=== PATIENT | male | born 1975 | race Caucasian/White ===

== ENCOUNTER 2016-05-25 02:54 | Emergency (ER) | payer MEDICARE, MEDICAID ==
[~2016-05-25] VITALS: Ht 182.9 cm; Wt 113.4 kg
[~2016-05-25 02:54] MED LIST: ACDPT PO; ACLI400A IH; ADV1DS IH; ADVAIR IH; ALBU2.5V4 NEB; ALBU8.5H2 IH; ALBU8.5H2 INH; AMLO10TA82 PO; ASP81CT PO; AZIT-21 PO; BUDE10.2 INH; BUDE1AMP IH; BUDE6HFA INH; CEFD300C PO; CEFD300C3 PO; CETI10TA17 PO; CITA20TA4 PO; CITA20TA7 PO; CLIN-81 PO; DIPH25TA82 PO; EPIN0.1D10 INJ; EPIN0.3P3 IM; FLUT1DIS26 INH; GUAI-366 PO; GUAI600T43 PO; GUAN1TAB21 PO; HYDR-1231 PO; HYDR-2858 PO; IBUP-30 PO; IBUP200C11 PO; IPRA3AMP11 INH; LEVO500T80 PO; LEVO750T39 PO; LISI-552 PO; LISI1TAB PO; LISI1TAB8 PO; LORA1TAB PO; LVT.025T PO; METO50TA2 PO; MIDAZOLAM 5 MG/5 ML (VERSED) VIAL INJ ONE; MIRT15TA6 PO; MNTL10T PO; OXYM15SP42 NS; PRD10T PO; PRD20T PO; PRED10TA PO; PROLASTIN-C IV; ROCURONIUM 50 MG/5 ML (ZEMURON) VIAL IV ONE; ROSU20TA14 PO; ROSU5TAB PO; RT-ALBUINH IH; SUCCINYLCHOLINE INJ 100 MG/5 ML SYR INJ ONE; TIOT18CA2 INH; [UNRECOGNIZED DRUG - CODE] IV; [UNRECOGNIZED DRUG - CODE] IV
[2016-05-25] MEDS ORDERED: ADENOSINE 6 MG/2 ML (ADENOCARD) VIAL IV ONE ×2 (03:00→03:15)
[2016-05-25] MEDS ORDERED: RT-ALBUTEROL SULF 2.5 MG/3 ML PRE-MIX VIAL INH STA (03:01)
[2016-05-25] MEDS ORDERED: DILTIAZEM 25 MG/5 ML INJ (CARDIZEM) VIAL ONE (03:03)
[2016-05-25] MEDS ORDERED: DILTIAZEM 100 MG/VIAL (CARDIZEM) ADD-VANTAGE IV ONE (03:03)
[2016-05-25] MEDS ORDERED: SODIUM CHLORIDE (ADD-VANTAGE) 100 ML IV ONE (03:03)
[2016-05-25 03:08] LABS: BASOPHILS # (AUTO) 0.1 10^3/uL (0.0-0.1); BASOPHILS % (AUTO) 0 % (0-10); EOSINOPHILS # (AUTO) 0.4 10^3/uL (0.0-0.3); EOSINOPHILS % (AUTO) 2 % (0-10); LYMPHOCYTES # (AUTO) 2.4 X 10^3 (1.0-4.0); LYMPHOCYTES % (AUTO) 13 % (12-44); MEAN CORPUSCULAR HEMOGLOBIN 28 PG (25-34); MEAN CORPUSCULAR HGB CONC 32 G/DL (32-36); MEAN CORPUSCULAR VOLUME 88 FL (80-99); MONOCYTES # (AUTO) 2.3 X 10^3 (0.0-1.0); MONOCYTES % (AUTO) 13 % (0-12); NEUTROPHILS # (AUTO) 12.5 X 10^3 (1.8-7.8); NEUTROPHILS % (AUTO) 71 % (42-75); PLATELET COUNT 234 10^3/uL (130-400); RED BLOOD COUNT 5.16 10^6/uL (4.35-5.85); RED CELL DISTRIBUTION WIDTH 13.2 % (10.0-14.5); WHITE BLOOD COUNT 17.6 10^3/uL (4.3-11.0)
[2016-05-25] MEDS ORDERED: LORazepam INJ 2 MG/ML (ATIVAN) VIAL ONE (03:13)
[2016-05-25] MEDS ORDERED: DEXAMETHASONE 4 MG/ML SDV (DECADRON) IH ONE (03:15)
[2016-05-25] MEDS ORDERED: methylPREDNISolone 125 MG (Solu-MEDROL) VIAL IVP ONE ×2 (03:15→04:15)
[2016-05-25 03:17] LABS: PROTHROMBIN TIME PATIENT 12.4 SEC (12.2-14.7)
[2016-05-25 03:31] LABS: BAND NEUTROPHILS 8 %; BASOPHILS % (MANUAL) 0 %; EOSINOPHILS % (MANUAL) 2 %; LYMPHOCYTES % (MANUAL) 8 %; NEUTROPHILS % (MANUAL) 61 %
[2016-05-25 03:32] LABS: POLYCHROMASIA SLIGHT; REACTIVE LYMPHOCYTES 8 %
[2016-05-25] MEDS ORDERED: LABETALOL HCL 20 MG/4 ML VIAL ONE (03:32)
[2016-05-25] MEDS ORDERED: DIGOXIN 0.25 MG/ML (LANOXIN) 2 ML AMP ONE (03:32)
[2016-05-25 03:34] LABS: ALANINE AMINOTRANSFERASE 39 U/L (0-55); ALBUMIN 4.2 G/DL (3.2-4.5); ANION GAP 10 MMOL/L (5-14); ASPARTATE AMINO TRANSFERASE 25 U/L (5-34); BILIRUBIN,TOTAL 0.5 MG/DL (0.1-1.0); BLOOD UREA NITROGEN 8 MG/DL (7-18); BUN/CREATININE RATIO 9; CALCIUM 9.1 MG/DL (8.5-10.1); CARBON DIOXIDE 35 MMOL/L (21-32); CHLORIDE 92 MMOL/L (98-107); CREATINE KINASE 70 U/L (30-200); CREATININE SERUM 0.91 MG/DL (0.60-1.30); GFR ESTIMATED > 60; GLUCOSE 168 MG/DL (70-105); POTASSIUM 4.1 MMOL/L (3.6-5.0); SODIUM 137 MMOL/L (135-145); TOTAL PROTEIN 7.2 G/DL (6.4-8.2)
[2016-05-25 03:41] LABS: ABG BASE EXCESS 9.4 MMOL/L (-2.5-2.5); ABG OXYGEN SATURATION 100 % (94-100); ABG PO2 304 MMHG (79-93); ABG TCO2 45.9 MMOL/L (21.0-31.0)
[2016-05-25 03:43] LABS: ALLENS TEST YES-POS; PATIENT TEMP 102
[2016-05-25 03:44] LABS: ABG HCO3 43 MMOL/L (23-27); ABG PCO2 123 MMHG (35-45); ABG PH 7.17 (7.37-7.43)
[2016-05-25 03:53] LABS: TROPONIN I < 0.30 NG/ML (<0.30)
[2016-05-25] MEDS ORDERED: cefTRIAXone INJECTION 1,000 MG in NS (IVPB) 50 ML IV ONE ×2 (04:15→04:30)
[2016-05-25] MEDS ORDERED: APAP 325 MG/10.15 ML LIQ (TYLENOL) UDC ONE (04:18)
[2016-05-25] MEDS ORDERED: cefTRIAXone 1 GM (ROCEPHIN) VIAL ONE (04:19)
[2016-05-25] MEDS ORDERED: NS (IVPB) 50 ML ONE (04:19)
--- NOTE | 2016-05-25 04:20 | ED Cardiac General ---
History of Present Illness General Chief Complaint: Cardiac/General Problems Stated Complaint: SOA,CP Nursing Triage Note: BROUGHT IN BY [facility] FOR SOA. PT NOTED TO HAVE VARIABLE HR FROM 120-220'S. PT ANXIOUS REPORTS THIS HAPPENING FOR APPROX. 24HRS Source: patient (VERY LIMITED HISTORIAN DUE TO CLINICAL CONDITION--ONLY ABLE TO SAY 1 WORD ANSWERS, IF HE IS ABLE TO TALK AT ALL.), family (MOM GIVES LIMITED INFORMATION), EMS, old records History of Present Illness Time seen by provider: 02:56 Initial Comments PT ARRIVES VIA EMS FROM HOME PT CALLED EMS FOR C/O SEVERE SHORTNESS OF BREATH AND CHEST PAIN AND RAPID HEART BEAT OFF AND ON O2 SATS IN 50'S AT HOME, AND PT INCREASED HIS HOME O2 TO 10L/NC EMS REPORTS THAT HEART RATE 120'S -220'S PT REPORTS THIS HAS BEEN GOING ON SINCE AT LEAST YESTERDAY MORNING--MOM REPORTS IT HAS BEEN GOING ON SINCE TUESDAY EMS DID NOT GIVE ANY NEB TREATMENTS OR GIVE ANY MEDICATIONS OR ATTEMPT TO INTUBATE PT. ONLY PLACED PT ON O2 EMS VERY FAMILIAR WITH PT AND HAVE INTUBATED HIM APPROXIMATELY 9-10 TIMES . PT HAS BEEN HERE 8 TIMES SINCE 07/2014 FOR THIS PROBLEM AND REQUIRED INTUBATION MANY OF THOSE VISITS. PT WITH HISTORY OF COPD AND ALPHA 1 ANTITRYPSIN DEFICIENCY MOM REPORTS THAT LUNG TRANSPLANT HAS BEEN DISCUSSED, BUT PT HAS NOT BEEN ABLE TO REFRAIN FROM METH USE. PT STATES HE WANTS TO BE A FULL CODE AND WANTS TO BE ON VENTILATOR. PT STATES NO ATIVAN AND NO ATROVENT--FOR REASONS UNKNOWN. MOM REPORTS THAT HE HAS BEEN EXPOSED TO [facility] IN THE LAST WEEK MOM REPORTS / REQUESTS THAT HE BE TRANSFERRED TO [facility]. PCP: DR. MOON BROOCH AND BRACELET MAKER AND RESIDENT DOCTOR AT [facility] Allergies and Home Medications Allergies Coded Allergies: sulfamethoxazole (Verified Allergy, Severe, SORES IN MOUTH, 12/15/12) trimethoprim (Verified Allergy, Severe, SORES IN MOUTH, 12/15/12) Penicillins (Verified Allergy, Unknown, HAS RECEIVED CEFEPIME IN THE PAST , 12/25/14) Sulfa (Sulfonamide Antibiotics) (Unverified Allergy, Unknown, 05/29/15) cocoa butter (Verified Allergy, Unknown, 10/05/15) glycerin (Verified Allergy, Unknown, 10/05/15) mineral oil (Verified Allergy, Unknown, 10/05/15) petrolatum,white (Verified Allergy, Unknown, 10/05/15) phenylephrine (Verified Allergy, Unknown, 10/05/15) shark liver oil (Verified Allergy, Unknown, 10/05/15) fish derived (Verified Adverse Reaction, Mild, 07/07/11) Home Medications Albuterol Sulfate 2.5 Mg/3 Ml Vial.neb 2.5 MG NEB Q4H PRN PRN SHORTNESS OF BREATH (Reported) Albuterol Sulfate 8.5 Gm Hfa.aer.ad 2 PUFF IH Q4H PRN PRN SHORTNESS OF BREATH ( Reported) Gixmx-2-Frqkxhydel Inhibitor 1,000 Mg Vial IV UD (Reported) TO INFUSE 60 MG PER KILOGRAM EVERY 7 DAYS FOR HOME INFUSION / LAST KNOW WEIGHT 93 KILOGRAMS FOR A 5,580 MG DOSE EVERY 7 DAYS. Citalopram Hydrobromide 20 Mg Tablet 20 MG PO DAILY (Reported) LAST FILLED 08/06/15 #30 Fluticasone/Salmeterol 1 Each Blst.w.dev 1 PUFF INH BID (Reported) LAST FILLED 06/19/15 #60 INHALATIONS Ibuprofen 200 Mg Tablet 400 MG PO Q8H PRN PRN PAIN (Reported) TAKES 2 (200MG) TABLETS Levofloxacin 500 Mg Tablet #6 500 MG PO DAILY Prescribed by: JUAN DUARTE on 11/25/15 1300 Lisinopril 20 Mg Tablet #30 20 MG PO DAILY Prescribed by: GENNA SADLER on 10/27/15 1130 Metoprolol Tartrate 50 Mg Tablet #60 50 MG PO BID Prescribed by: GENNA SADLER on 10/27/15 1130 Oxymetazoline HCl 15 Ml [place] 2 SPRAYS NS Q12H PRN PRN CONGESTION (Reported) Prednisone 20 Mg Tab #12 40 MG PO DAILY Prescribed by: JUAN DUARTE on 11/25/15 1300 Tiotropium [place] 1 Inh Aerp 1 CAP INH DAILY (Reported) LAST FILLED 06/19/15 #30 INHALATIONS Review of Systems Constitutional: diaphoresis other (VERY MINIMAL INFORMATION FROM PT) Respiratory: Shortness of Air Cardiovascular: Chest Pain Palpitations Past Pjfcbfc-Fihbyu-Ysulct Hx Patient Social History Alcohol Use: Denies Use Recreational Drug Use: Yes (+ IV METH, POLYSUBSTANCE ABUSE) Smoking Status: Current Everyday Smoker Type Used: Cigarettes Recent Foreign Travel: No Contact w/Someone Who Travel: No Recent Infectious Disease Expo: No Recent Hopitalizations: No Immunizations Up To Date Tetanus Booster (TDap): Unknown Date of Pneumonia Vaccine: Jan 16, 2013 Date of Influenza Vaccine: Jan 28, 2014 Seasonal Allergies Seasonal Allergies: Yes Surgeries HX Surgeries: Yes (LEFT KNEE SURGERY WHEN 11 YRS OLD, PORT) Surgeries: Orthopedic Respiratory Hx Respiratory Disorders: Yes (RESP FAILURE W/VENT MULTIPLE TIMES (A1A)-( ALPHA 1 ANTIRYPSIN DEFICIENCY)) Respiratory Disorders: Pneumonia, COPD, Emphysema Cardiovascular Hx Cardiac Disorders: Yes (TACHYCARDIA) Cardiac Disorders: High Cholesterol, Hypertension, Irregular Heartbeat, Palpitations Neurological Hx Neurological Disorders: No Reproductive System Hx Reproductive Disorders: No Genitourinary Hx Genitourinary Disorders: No Gastrointestinal Hx Gastrointestinal Disorders: Yes Gastrointestinal Disorders: Hepatitis Musculoskeletal Hx Musculoskeletal Disorders: No Endocrine Hx Endocrine Disorders: Yes Endocrine Disorders: Hypothyroidsim HEENT HX ENT Disorders: No Cancer Hx Cancer: No Psychosocial Hx Psychiatric Problems: Yes (POLYSUBSTANCE ABUSE) Behavioral Health Disorders: Anxiety, Depression Integumentary HX Skin/Integumentary Disorder: No Blood Transfusions Hx Blood Disorders: No Adverse Reaction to a Blood Tr: No Family Medical History Significant Family History: Diabetes, Lung Disease Family Medial History: Diabetes mellitus Physical Exam Vital Signs Vital Sign - Last 12Hours 05/25/16 03:10 Temp 102.1 Pulse 186 Resp 26 B/P 139/90 Pulse Ox 98 O2 Delivery Bi-pap FiO2 100 Capillary Refill : Less Than 3 Seconds General Appearance: Severe Distress (ANXIOUS, AGITATED, BUT LETHARIGIC AND OBVIOUSLY WORN OUT AND NEARING UNCONSCIOUSNESS) Other (PROFUSELY DIAPHORETIC, SKIN VERY WARM AND FLUSHED) HEENT: Other (POOR DENTITION) Neck: No JVD Respiratory: Decreased Breath Sounds (VERY MINIMAL AIR MOVEMENT BILATERALLY) Respiratory Distress (SEVERE) Cardiovascular: No Edema Tachycardia (HEART RATE 120'S TO 220'S) Gastrointestinal: Soft Extremity: Normal Capillary Refill No Pedal Edema Neurologic/Psychiatric: Other (SEMI-ALERT, MENTATION NOTED ABOVE) Skin: Diaphoresis (PROFUSELY) Other (FINGERS ON LEFT HAND WITH HEAVY TOBACCO STAINS; SKIN FLUSHED, VERY WARM AND PROFUSELY DIAPHORETIC) Intubation Method: orotracheal Tube Size: 7.5 Medications: Rocuronium, Succinylcholine, Versed Positive End Tide CO2: Yes Breath Sounds after Intubation: bilateral-equal Intubation Complications: no complications Post Intubation Xray: Yes Progress/Xray Impression: ET TUBE IN PROPER PLACE Progress PT WAS NOTED TO HAVE A MODERATE AMOUNT OF BLOOD IN POSTERIOR PHARYNX PRIOR TO INTUBATION AND WAS SUCTIONED NG TUBE PLACEMENT AFTER INTUBATION ALSO CAUSED BLEEDING. Progress/Results/Core Measures Results/Orders Lab Results Laboratory Tests Test 05/25/16 02:57 05/25/16 03:15 05/25/16 04:00 05/25/16 04:15 Range/Units Activated Partial Thromboplast Time 29 24-35 SEC Alanine Aminotransferase (ALT/SGPT) 39 0-55 U/L Albumin 4.2 3.2-4.5 G/DL Alkaline Phosphatase 72 40-136 U/L Anion Gap 10 5-14 MMOL/L Aspartate Amino Transf (AST/SGOT) 25 5-34 U/L B-Type Natriuretic Peptide 119.8 H <100.0 PG/ML BUN/Creatinine Ratio 9 Band Neutrophils 8 % Basophils # (Auto) 0.1 0.0-0.1 10^3/uL Basophils % (Manual) 0 % Basophils (%) (Auto) 0 0-10 % Blood Urea Nitrogen 8 7-18 MG/DL Calcium Level 9.1 8.5-10.1 MG/DL Carbon Dioxide Level 35 H 21-32 MMOL/L Chloride Level 92 L 98-107 MMOL/L Creatine Kinase MB 2.0 <6.6 NG/ML Creatinine 0.91 0.60-1.30 MG/DL Eosinophils # (Auto) 0.4 H 0.0-0.3 10^3/uL Eosinophils % (Manual) 2 % Eosinophils (%) (Auto) 2 0-10 % Estimat Glomerular Filtration Rate > 60 Glucose Level 168 H 70-105 MG/DL Hematocrit 45 40-54 % Hemoglobin 14.3 13.3-17.7 G/DL INR Comment 1.0 0.8-1.4 Lymphocytes # (Auto) 2.4 1.0-4.0 X 10^3 Lymphocytes % (Manual) 8 % Lymphocytes (%) (Auto) 13 12-44 % Magnesium Level 2.0 1.8-2.4 MG/DL Mean Corpuscular Hemoglobin 28 25-34 PG Mean Corpuscular Hemoglobin Concent 32 32-36 G/DL Mean Corpuscular Volume 88 80-99 FL Mean Platelet Volume 10.0 7.4-10.4 FL Monocytes # (Auto) 2.3 H 0.0-1.0 X 10^3 Monocytes % (Manual) 13 % Monocytes (%) (Auto) 13 H 0-12 % Neutrophils # (Auto) 12.5 H 1.8-7.8 X 10^3 Neutrophils % (Manual) 61 % Neutrophils (%) (Auto) 71 42-75 % Platelet Count 234 130-400 10^3/uL Polychromasia SLIGHT Potassium Level 4.1 3.6-5.0 MMOL/L Prothrombin Time 12.4 12.2-14.7 SEC Reactive Lymphocytes 8 % Red Blood Count 5.16 4.35-5.85 10^6/uL Red Cell Distribution Width 13.2 10.0-14.5 % Sodium Level 137 135-145 MMOL/L TSH [place] Testing 3.93 0.35-4.94 UIU/ML Total Bilirubin 0.5 0.1-1.0 MG/DL Total Creatine Kinase 70 30-200 U/L Total Protein 7.2 6.4-8.2 G/DL Troponin I < 0.30 <0.30 NG/ML White Blood Count 17.6 H 4.3-11.0 10^3/uL [place] Test YES-POS Arterial Blood Base Excess 9.4 H -2.5-2.5 MMOL/L Arterial Blood HCO3 43 *H 23-27 MMOL/L Arterial Blood Oxygen Saturation 100 94-100 % Arterial Blood Partial Pressure CO2 123 *H 35-45 MMHG Arterial Blood Partial Pressure O2 304 H 79-93 MMHG Arterial Blood Total CO2 45.9 H 21.0-31.0 MMOL/L Arterial Blood pH 7.17 *L 7.37-7.43 Blood Gas Inspired Oxygen 15L Blood Gas Patient Temperature 102 Blood Gas Puncture Site R RAD Blood Gas Ventilator Setting NO Ur Tricyclic Antidepressants Screen NEGATIVE NEGATIVE Urine Amphetamines Screen NEGATIVE NEGATIVE Urine Bacteria TRACE /HPF Urine Barbiturates Screen NEGATIVE NEGATIVE Urine Benzodiazepines Screen NEGATIVE NEGATIVE Urine Bilirubin NEGATIVE NEGATIVE Urine Cannabinoids Screen NEGATIVE NEGATIVE Urine Casts PRESENT /LPF Urine Clarity SLIGHTLY CLOUDY Urine Cocaine Screen NEGATIVE NEGATIVE Urine Color YELLOW Urine Crystals NONE /LPF Urine Culture Indicated NO Urine Glucose (UA) NEGATIVE NEGATIVE Urine Hyaline Casts 25-50 H /LPF Urine Ketones NEGATIVE NEGATIVE Urine Leukocyte Esterase NEGATIVE NEGATIVE Urine Methadone Screen NEGATIVE NEGATIVE Urine Methamphetamines Screen POSITIVE H NEGATIVE Urine Mucus LARGE H /LPF Urine Nitrite NEGATIVE NEGATIVE Urine Opiates Screen NEGATIVE NEGATIVE Urine Oxycodone Screen NEGATIVE NEGATIVE Urine Phencyclidine Screen NEGATIVE NEGATIVE Urine Propoxyphene Screen NEGATIVE NEGATIVE Urine Protein 3+ H NEGATIVE Urine RBC RARE /HPF Urine RBC (Auto) 2+ H NEGATIVE Urine Specific [place] 1.030 H 1.016-1.022 Urine Squamous Epithelial Cells NONE /HPF Urine Urobilinogen NORMAL NORMAL MG/DL Urine WBC NONE /HPF Urine pH 5 5-9 Lactic Acid Level 1.2 0.5-2.0 MMOL/L Micro Results Microbiology 05/25/16 Influenza Types A,B Antigen ([place]) - Final, Complete My Orders Orders-JHONATAN MOJICA DO Adenosine Injection (Adenocard Injection (05/25/16 03:00) Saline Lock/Iv-Start (05/25/16 03:01) Ekg Tracing (05/25/16 03:01) O2 (05/25/16 03:01) Monitor-Rhythm Ecg Trace Only (05/25/16 03:01) Arterial Blood Gas (05/25/16 03:01) BNP (05/25/16 03:01) Cbc With Automated Diff (05/25/16 03:01) Comprehensive Metabolic Panel (05/25/16 03:01) Creatine Kinase (05/25/16 03:01) Creatine Kinase Mb (05/25/16 03:01) Drug Screen Stat (Urine) (05/25/16 03:01) Magnesium (05/25/16 03:01) Protime With Inr (05/25/16 03:01) Partial Thromboplastin Time (05/25/16 03:01) Thyroid Analyzer (05/25/16 03:01) Troponin I (05/25/16 03:01) Ua Culture If Indicated (05/25/16 03:01) Chest 1 View, Ap/Pa Only (05/25/16 03:01) Albuterol Pre-Mix Nebs (Rt) (Proventil P (05/25/16 03:01) Dexamethasone Injection (Decadron Inject (05/25/16 03:15) Rt Request For Service (05/25/16 03:01) Svn Sm Volume Nebulizer Rt-Rfs (05/25/16 03:01) Methylprednisolone Sod Succ (Solu-Medrol (05/25/16 03:15) Adenosine Injection (Adenocard Injection (05/25/16 03:15) Diltiazem Drip (Cardizem Drip) (05/25/16 03:03) Diltiazem Injection (Cardizem Injection) (05/25/16 03:03) Sodium Chloride (Add-[place]) (Ns (Add-V (05/25/16 03:03) Manual Differential (05/25/16 02:57) Lorazepam Injection (Ativan Injection) (05/25/16 03:13) Digoxin Injection (Lanoxin Injection) (05/25/16 03:32) Labetalol Injection (Normodyne Injection (05/25/16 03:32) Methylprednisolone Sod Succ (Solu-Medrol (05/25/16 04:15) Lactic Acid Analyzer (05/25/16 04:07) Blood Culture (05/25/16 04:07) Influenza A And B Antigens (05/25/16 04:07) Ceftriaxone Injection (Rocephin Injectio (05/25/16 04:15) Ekg Tracing (05/25/16 04:13) Catheter(Urinary) Insert & Ass 03,15 (05/25/16 04:15) Ng Tube Insert & Assessment (05/25/16 04:15) Acetaminophen Oral Solution (Tylenol Ora (05/25/16 04:30) Acetaminophen Oral Solution (Tylenol Ora (05/25/16 04:18) Ceftriaxone Injection (Rocephin Injectio (05/25/16 04:30) Ceftriaxone Injection (Rocephin Injectio (05/25/16 04:19) Ns (Ivpb) (Sodium Chloride 0.9% Ivpb Bag (05/25/16 04:19) Ns Iv 1000 Ml (Sodium Chloride 0.9%) (05/25/16 05:04) Saline Lock/Iv-Start (05/25/16 05:05) Ns Iv 1000 Ml (Sodium Chloride 0.9%) (05/25/16 05:05) Medications Given in ED Current Medications Medications Dose Ordered Sig/Jonah Route Start Time Stop Time Status Last Admin Dose Admin Acetaminophen 975 mg 975 mg ONCE ONCE PO 05/25/16 04:30 05/25/16 04:31 DC 05/25/16 04:24 975 MG Adenosine 6 mg ONCE ONCE IV 05/25/16 03:15 05/25/16 03:16 DC 05/25/16 03:06 6 MG Adenosine 6 mg STK-MED ONCE IV 05/25/16 03:00 05/25/16 03:02 DC 05/25/16 03:00 6 MG Ceftriaxone Sodium/Sodium Chloride 50 ml @ 100 mls/hr ONCE ONCE IV 05/25/16 04:15 05/25/16 04:44 DC 05/25/16 04:34 100 MLS/HR Ceftriaxone Sodium/Sodium Chloride 50 ml @ 100 mls/hr ONCE ONCE IV 05/25/16 04:30 05/25/16 04:59 DC 05/25/16 04:34 100 MLS/HR Dexamethasone Sodium Phosphate 30 mg ONCE ONCE IH 05/25/16 03:15 05/25/16 03:16 DC 05/25/16 03:15 30 MG Digoxin 0.5 mg STK-MED ONCE .ROUTE 05/25/16 03:32 05/25/16 03:33 DC 05/25/16 03:33 0.5 MG Diltiazem HCl 25 mg STK-MED ONCE .ROUTE 05/25/16 03:03 05/25/16 03:04 DC 05/25/16 03:07 25 MG Diltiazem HCl 100 mg STK-MED ONCE IV 05/25/16 03:03 05/25/16 03:04 DC 05/25/16 03:11 100 MG Labetalol HCl 20 mg 20 mg STK-MED ONCE .ROUTE 05/25/16 03:32 05/25/16 03:33 DC 05/25/16 03:31 20 MG Methylprednisolone Sodium Succinate 125 mg ONCE ONCE IVP 05/25/16 03:15 05/25/16 03:16 DC 05/25/16 04:00 125 MG Vital Signs/I&O Vital Sign - Last 12Hours 05/25/16 05/25/16 05/25/16 03:10 03:10 03:11 Temp 102.1 102.1 Pulse 186 186 Resp 26 26 B/P 139/90 139/90 Pulse Ox 98 98 98 O2 Delivery Bi-pap OxyMask FiO2 100 100 Blood Pressure Mean: 106 Progress Note : Progress Note REQUIRED MULTIPLE MEDICATIONS TO GET HEART RATE AND BP DOWN MINIMAL IMPROVEMENT WITH BIPAP, PT WAS FIGHTING THE MASK PT INTUBATED BY RT WITH IMMEDIATE IMPROVEMENT IN O2 SATS NO FURTHER DETERIORATION IN PT'S CONDITION DURING ER STAY PT HAS TEMP OF 102, WILL TREAT EMPIRICALLY WITH ANTIBIOTICS WELL ECG Initial ECG Impression Time: 03:03 Initial ECG Rate: 126 Initial ECG Rhythm: S.Tach Initial ECG Comparisson: Unchanged EKG : EKG Time: 03:39 Rate: 107 Rhythm: S.Tach ECG Comparisson: Changed (DECREASED HEART RATE) Comment RHYTHM STRIPS SHOW RAPID VARIATION IN HEART RATE BETWEEN 120'S AND 220'S Diagnostic Imaging Comments CXR--ET TUBE AND NG TUBE IN PLACE, BIBASILAR ATELECTASIS--PENDING RADIOLOGIST REVIEW Reviewed: Reviewed by Me Critical Care Note Critical Care Total Time (minutes) 1 HOUR Departure Communication Progress Notes 0336--CALLED [facility] ONE CALL 0340--SPOKE WITH DR. DE LA TORRE, ACCEPTS PT FOR ADMIT. RECOMMENDED VENT SETTINGS NOTED 0343--[facility] CONTACTED FOR TRANSPORT 0355--[facility] HERE FOR TRANSPORT. PT TRANSFERRED TO THEIR VENTILATOR AND THEIR SENIOR WRITER. NEB TREATMENT IN PROCESS. DELAY IN TRANSPORT DUE TO WAITING FOR ROOM TO BE CLEANED AT [facility]--[facility] WILL NOT GIVE BED ASSIGNMENT UNTIL ROOM IS CLEAN AND WILL NOT ACCEPT PT TO GO TO ER UNTIL BED IS CLEAN. THEY ALSO REPORT THAT [facility] CANNOT LIFT OFF UNTIL BED IS ASSIGNED. THEY WILL CALL US WHEN BED IS CLEAN. THEY REPORT IT WILL TAKE AN HOUR TO CLEAN BED. SPOKE WITH THEM AGAIN AT 0405--STILL WILL NOT GIVE BED ASSIGNMENT OR NUMBER TO GIVE NURSE REPORT, BED IS NOT CLEAN 0505--STILL NO BED ASSIGNMENT Impression Impression: Primary Impression: Acute on chronic respiratory failure Additional Impressions: SVT (supraventricular tachycardia) [id number] deficiency Methamphetamine abuse Fever Exposure to influenza Disposition: 02 XFER SHT-TRM HOSP Condition: Improved Departure-Patient Inst. Referrals: [facility] (PCP/Family) Primary Care Physician JHONATAN MOJICA DO May 25, 2016 04:20
[2016-05-25 04:23] LABS: BILIRUBIN,URINE NEGATIVE (NEGATIVE); KETONES,URINE NEGATIVE (NEGATIVE); LEUKOCYTE ESTERASE ,URINE NEGATIVE (NEGATIVE); NITRITE,URINE NEGATIVE (NEGATIVE); PH,URINE 5 (5-9); PROTEIN,URINE 3+ (NEGATIVE); UROBILINOGEN,URINE NORMAL (NORMAL)
[2016-05-25 04:26] LABS: HYALINE CASTS, URINE 25-50 /LPF
[2016-05-25] MEDS ORDERED: APAP 325 MG/10.15 ML LIQ (TYLENOL) UDC PO ONE (04:30)
[2016-05-25] MEDS ORDERED: NS IV 1000 ML 1,000 ML ONE (05:04)
[2016-05-25] MEDS ORDERED: NS IV 1000 ML 1,000 ML IV ONE (05:05)
[2016-05-25 05:30] VITALS: BP 96/66
--- NOTE | 2016-05-25 06:35 | Diagnostic Imaging Report ---
EXAM: CHEST 1 VIEW, AP/PA ONLY INDICATION: Intubation COMPARISON: Chest radiograph 12/23/2015. FINDINGS: ETT tip just below the level of clavicles. NG tube tip below the field of view. Normal heart size. Small bilateral pleural effusions or thickening. Hyperinflation. Scarring in the lung bases. IMPRESSION: 1. ETT tip in good position. 2. Hyperinflation with scarring in the lung bases and pleural thickening or fluid bilaterally. Dictated by: Dictated on workstation # [id number]
== END 2016-05-25 05:30 | disposition short-term general hospital (02) ==
LOC: EDUNIT# 02:54 → ER 02:56
DX: J96.20 Acute and chronic respiratory failure, unspecified whether with hypoxia or hypercapnia (principal); I47.1 Supraventricular tachycardia; E88.01 Alpha-1-antitrypsin deficiency; F15.10 Other stimulant abuse, uncomplicated; R50.9 Fever, unspecified; Z20.89 Contact with and (suspected) exposure to other communicable diseases; I10 Essential (primary) hypertension; J44.9 Chronic obstructive pulmonary disease, unspecified; F17.210 Nicotine dependence, cigarettes, uncomplicated; Z79.899 Other long term (current) drug therapy
CPT/HCPCS: 36415; 71010; 80053; 80306; 81000; 82550; 82553; 82805; 83605; 83735; 83880; 84443; 84484; 85007; 85027; 85610; 85730; 87040; 87804; 93005; 93041; 94640; 96365; 96366; 96367; 96375